=== PATIENT | male | born 1930 | race Caucasian/White ===

== ENCOUNTER 2017-04-14 08:46 | Inpatient (IN) | payer MEDICARE, OTHER ==
[~2017-04-14] VITALS: Ht 177.8 cm; Wt 85.0 kg
[2017-04-14] MEDS ORDERED: SODIUM CHLORIDE FLUSH 10ML SYR IVF ONE (09:00)
[2017-04-14] MEDS ORDERED: ROSU20TA PO (09:10)
[2017-04-14] MEDS ORDERED: HYDR25TA6 PO (09:10)
[2017-04-14] MEDS ORDERED: TELM80TA PO (09:10)
[2017-04-14] MEDS ORDERED: AMLO5TAB2 PO (09:10)
[2017-04-14] MEDS ORDERED: METO25TA35 PO (09:10)
[2017-04-14] MEDS ORDERED: CLOP75TA PO (09:10)
[2017-04-14] MEDS ORDERED: OMEG-14 PO (09:10)
[2017-04-14] MEDS ORDERED: ASPI-496 PO (09:10)
[2017-04-14] MEDS ORDERED: RANI150T4 PO (09:10)
[2017-04-14] MEDS ORDERED: ASCO10004 PO (09:10)
[2017-04-14] MEDS ORDERED: [UNRECOGNIZED DRUG - OTHER] (09:11)
[2017-04-14] MEDS ORDERED: CHOL100011 PO (09:11)
[2017-04-14] MEDS ORDERED: CALCIUM (09:11)
[2017-04-14] MEDS ORDERED: GARL10002 PO (09:11)
[2017-04-14] MEDS ORDERED: IRON (09:11)
[2017-04-14] MEDS ORDERED: PLEASE ENTER HEIGHT AND WEIGHT MC SCH (09:30)
[2017-04-14] MEDS ORDERED: PLEASE ENTER ALLERGIES MC SCH ×2 (09:30)
[2017-04-14 09:52] LABS: PATH.CAST-FLAG NOT PRESENT; SPERM-FLAG NOT PRESENT; SRC-FLAG NOT PRESENT; XTAL-FLAG NOT PRESENT; YLC-FLAG NOT PRESENT
[2017-04-14 09:56] LABS: HEMATOCRIT 35.5 % (39.2-51.8); WHITE BLOOD COUNT 8.4 x10^3/uL (3.4-10)
[2017-04-14 09:59] LABS: ASPARTATE AMINO TRANSFERASE 17 U/L (15-37); BLOOD UREA NITROGEN 13 mg/dL (7-18)
[2017-04-14 10:05] LABS: IS PT STATUS REG ER OR PRE ER? YES
[2017-04-14] MEDS ORDERED: SODIUM CHLORIDE 0.9% 1,000 ML IV ONE ×2 (10:57→11:00)
[2017-04-14] MEDS ORDERED: SODIUM CHLORIDE FLUSH 10ML SYR IVF PRN (11:00)
[2017-04-14] MEDS ORDERED: SODIUM CHLORIDE 0.9% 1,000ML IVBOLUS ONE (11:00)
[2017-04-14] MEDS ORDERED: NS + 20MEQ KCL 1,000 ML IV SCH (11:26)
[2017-04-14] MEDS ORDERED: DOCUSATE 100 MG CAPSULE PO PRN (11:30)
[2017-04-14] MEDS ORDERED: POLYETHYLENE GLYCOL 17 GM PACKET PO PRN (11:30)
[2017-04-14] MEDS ORDERED: ACETAMINOPHEN 325 MG TABLET PO PRN (11:30)
[2017-04-14] MEDS ORDERED: HYDROcodone/APAP 5/325 TABLET PO PRN (11:30)
[2017-04-14] MEDS ORDERED: hydrALAzine 20 MG/ML, 1ML IV PRN (11:30)
[2017-04-14] MEDS ORDERED: ONDANSETRON 2MG/ML, 2ML IVPush PRN (11:30)
[2017-04-14] MEDS ORDERED: ENOXAPARIN 40 MG/0.4 ML SQ SCH (11:30)
[2017-04-14] MEDS ORDERED: morphine SULFATE 10 MG/ML, 1ML IVPush PRN (11:30)
[2017-04-14] MEDS ORDERED: NICOTINE 7 MG/24 HR PATCH.TD24 TD SCH (11:30)
[2017-04-14] MEDS ORDERED: ENALAPRILAT 1.25 MG/ML, 2ML IV PRN (11:30)
[2017-04-14 13:20] VITALS: BP 159/83
[2017-04-14] MEDS: AMLODIPINE 5 MG TABLET PO SCH (13:28)
[2017-04-14] MEDS: ASPIRIN 325 MG TABLET PO SCH (13:29)
[2017-04-14] MEDS: CLOPIDOGREL 75 MG TABLET PO SCH (13:29)
[2017-04-14] MEDS: FAMOTIDINE 20 MG TABLET PO SCH (13:29)
[2017-04-14 13:33] VITALS: BP 159/83
[2017-04-14] MEDS ORDERED: MAGNESIUM SULFATE PMX 2GM/50ML 50 ML IV ONE (15:30)
[2017-04-14] MEDS ORDERED: FLU VACC QS2017-18 (36MOS+) UP/PF 0.5 ML IM-VACC ONE (19:00)
[2017-04-14 20:00] VITALS: BP 165/69
[2017-04-14] MEDS ORDERED: ATORVASTATIN 40 MG TABLET PO SCH (21:00)
[2017-04-14] MEDS: METOPROLOL TARTRATE 50 MG TABLET PO SCH (21:44)
[2017-04-14 23:38] VITALS: BP 157/85
[2017-04-15 03:16] VITALS: BP 172/88
[2017-04-15] MEDS: ENALAPRILAT 1.25 MG/ML, 2ML IV PRN ×2 (04:00→04:01)
[2017-04-15 04:40] VITALS: BP 125/60
[2017-04-15 05:14] VITALS: BP 150/71
[2017-04-15 06:05] LABS: BLOOD UREA NITROGEN 9 mg/dL (7-18)
[2017-04-15 06:10] LABS: IS PT STATUS REG ER OR PRE ER? NO
[2017-04-15 08:00] VITALS: BP 159/86
[2017-04-15] MEDS: ASPIRIN 325 MG TABLET PO SCH (08:34)
[2017-04-15] MEDS: AMLODIPINE 5 MG TABLET PO SCH (08:37)
[2017-04-15] MEDS: FAMOTIDINE 20 MG TABLET PO SCH (08:37)
[2017-04-15] MEDS: CLOPIDOGREL 75 MG TABLET PO SCH (08:37)
[2017-04-15] MEDS: METOPROLOL TARTRATE 50 MG TABLET PO SCH (08:37)
[2017-04-15] MEDS ORDERED: SENNA/DOCUSATE TABLET PO SCH (09:00)
[2017-04-15] MEDS ORDERED: LOSARTAN 50MG TABLET PO SCH (09:00)
== END 2017-04-15 10:00 | disposition home or self-care (01) | DRG 641 ==
LOC: ED 10:33 → EDIP 10:57 → SUATTDRO 11:12 → 4WST 11:56
PROVIDERS: ADMIT Hospitalist; ATTEND Hospitalist
DX: E87.1 Hypo-osmolality and hyponatremia (principal); E44.0 Moderate protein-calorie malnutrition; D64.9 Anemia, unspecified; E78.5 Hyperlipidemia, unspecified; F17.210 Nicotine dependence, cigarettes, uncomplicated; I10 Essential (primary) hypertension; T50.2X5A Adverse effect of carbonic-anhydrase inhibitors, benzothiadiazides and other diuretics, initial encounter; Z66 Do not resuscitate; Z82.49 Family history of ischemic heart disease and other diseases of the circulatory system; Z95.5 Presence of coronary angioplasty implant and graft; I25.2 Old myocardial infarction; Z28.21 Immunization not carried out because of patient refusal; Z68.26 Body mass index [BMI] 26.0-26.9, adult; Y92.89 Other specified places as the place of occurrence of the external cause
CPT/HCPCS: 36415; 70450; 71010; 80048; 80053; 81001; 83735; 84100; 84484; 85025; 93005; 93306; J3480; J3475; J7030